=== PATIENT | female | born 1965 | race Hispanic/Latino ===

== ENCOUNTER 2019-03-25 16:49 | Outpatient (RCR) | payer OTHER ==
[~2019-03-25 16:49] MED LIST: MINASTRIN FE PO
== END 2019-03-26 ==
LOC: PT 16:49
PROVIDERS: ATTEND Neurological Surgery
DX: M51.26 Other intervertebral disc displacement, lumbar region (principal)

== ENCOUNTER 2019-04-10 07:00 | Outpatient (RCR) | payer OTHER | END 2019-04-25 | LOC: PT 07:00 | PROVIDERS: ATTEND Neurological Surgery | DX: M51.26 Other intervertebral disc displacement, lumbar region (principal) ==

== ENCOUNTER 2021-04-24 16:47 | Outpatient (RCR) | payer OTHER | END 2021-04-25 | LOC: PT 16:47 | PROVIDERS: ATTEND Physician Assistant | DX: M77.8 Other enthesopathies, not elsewhere classified (principal); M75.82 Other shoulder lesions, left shoulder; M25.512 Pain in left shoulder; M25.612 Stiffness of left shoulder, not elsewhere classified; M62.81 Muscle weakness (generalized) ==